=== PATIENT | female | born 1970 | race Caucasian/White ===

== ENCOUNTER 2016-11-13 19:50 | Emergency (ER) | payer OTHER ==
[~2016-11-13] VITALS: Ht 157.5 cm; Wt 59.0 kg
[~2016-11-13 19:50] MED LIST: IBUP-1542 PO
[2016-11-13 19:55] VITALS: Ht 157.5 cm; Wt 59.0 kg
[2016-11-13] MEDS ORDERED: PRED20TA PO (20:37)
[2016-11-13] MEDS ORDERED: TRIA15CR55 TOP (20:37)
[2016-11-13] MEDS ORDERED: CETI10CA PO (20:37)
--- NOTE | 2016-11-13 20:41 | ERD ---
ER Documentation Chief Complaint Date/Time DATE: 11/13/16 TIME: 20:39 Chief Complaint gen rash and nausea started yesterday HPI This 38-year-old female presents with a rash that started yesterday. It is itchy. She has nausea but no fevers, vomiting, shortness of the chest pain. She denies any new foods, medications or known insect bites or any other potential exposures. ROS All systems reviewed and are negative except as per history of present illness. Medications Home Meds Active Scripts Cetirizine Hcl* (Zyrtec*) 10 Mg Capsule, 10 MG PO DAILY, #10 TAB.CHEW Prov:OZ WILLIS MD 11/13/16 Prednisone* (Prednisone*) 20 Mg Tab, 40 MG PO DAILY for 4 Days, TAB Prov:OZ WILLIS MD 11/13/16 Triamcinolone Acetonide (Triamcinolone Acetonide) 0.1% - 15 Gm Cream.gm., 1 APPLIC TOP BID for 7 Days, #1 TUB Prov:OZ WILLIS MD 11/13/16 Ibuprofen* (Ibuprofen*) 600 Mg Tablet, 600 MG PO Q6, #30 TAB Prov:OSBALDO FRAZIER PA-C 01/18/15 Reported Medications [None] No Conflict Check 10/12/10 Allergies Allergies: Coded Allergies: Acetaminophen (Verified Allergy, Mild, 10/15/10) Hydrocodone (Verified Allergy, Mild, 10/15/10) PMhx/Soc Medical and Surgical Hx: pt denies Medical Hx History of Surgery: Yes (APPENDECTOMY) Anesthesia Reaction: No Hx Neurological Disorder: No Hx Respiratory Disorders: No Hx Cardiac Disorders: No Hx Psychiatric Problems: No Hx Miscellaneous Medical Probl: No Hx Alcohol Use: No Hx Substance Use: No Hx Tobacco Use: No Smoking Status: Never smoker Physical Exam Vitals Vital Signs Date Time Temp Pulse Resp B/P Pulse Ox O2 Delivery O2 Flow Rate FiO2 11/13/16 19:55 98.0 80 20 153/78 100 Physical Exam Const: [] Alert, [id number] Head: Atraumatic Eyes: Normal Conjunctiva ENT: Normal External Ears, Nose and Mouth. Neck: Full range of motion..~ No meningismus. Resp: Clear to auscultation bilaterally Cardio: Regular rate and rhythm, no murmurs Abd: Soft, non tender, non distended. Normal bowel sounds Skin: No petechiae or purpura. There are scattered we will type lesions with excoriated central papules. There is no vesicles, streaking, fluctuance. Back: No midline or flank tenderness Ext: No cyanosis, or edema Neur: Awake and alert Psych: Normal Mood and Affect Procedures/MDM Patient presents with a rash of uncertain etiology. Has a clinical appearance of likely insect bites with local reactions. There is no signs of cellulitis or abscess or anaphylaxis. Very early varicella is also consideration but I do not appreciate any vesicles. Patient will be treated with triamcinolone, Zyrtec and short course of prednisone and observation at home. The patient was stable with no new complaints during the ER course. Clinically, there is no current evidence to suggest meningitis, sepsis, acute abdomen, pneumonia, acute coronary syndrome, pulmonary embolism, or any other emergent condition appearing to require further evaluation or hospitalization. The patient should certainly return for any new or worsening symptoms per the aftercare instructions. They should otherwise follow-up with her primary care doctor for reevaluation this week. Departure Diagnosis: Primary Impression: Rash Condition: Stable Patient Instructions: Dermatitis, Non-Specific, Allergic Reaction, Insect ( Local) Additional Instructions: . Cheque otro vez con barajas doctor primario en el proximo nelson or regresa para mas o nueva simptomas. OZ WILLIS MD Nov 13, 2016 20:41
== END 2016-11-13 21:48 | disposition home or self-care (01) ==
LOC: FTE 19:50
DX: R21 Rash and other nonspecific skin eruption (principal)
CPT/HCPCS: 99284